=== PATIENT | male | born 1955 | race Two or more races ===

== ENCOUNTER 2019-06-24 13:59 | Inpatient (IN) | payer SELFPAY ==
[~2019-06-24] VITALS: Ht 172.7 cm; Wt 65.8 kg
[2019-06-24 14:00] VITALS: BP 100/80
--- NOTE | 2019-06-24 14:00 | NUR ---
ED Nurse Note: PT AMBULATED TO ED C/O NAUSEA VOMITING WITH BLOOD. PT REPORTS ADBOMEN PAIN. NO ACUTE DISTRESS NOTED. IV LINES ESTABLISHED, PATENT AND INTACT. BLOOD SPECIMEN SENT TO LAB
--- NOTE | 2019-06-24 14:02 | Emergency Room Report ---
History of Present Illness General Source: Patient, EMS Present Illness HPI Patient is a 63-year-old male brought in by EMS after increased hematemesis. Patient reportedly had been vomiting dark bloody material. He reports having a prior history of diabetes as well as hypertension. He denies any alcohol use since June 15. Patient was sent in from a urgent care where he was noted to have some coffee-ground emesis approximately 200 cc. Allergies: Coded Allergies: No Known Allergies (Unverified , 06/24/19) Patient History Reviewed Nursing Documentation: PMH: Agreed; PSxH: Agreed Review of Systems All Other Systems: negative except mentioned in HPI Physical Exam Sp02 EP Interpretation: reviewed, normal General Appearance: normal inspection, alert, GCS 15 Head: atraumatic ENT: normal ENT inspection, hearing grossly normal, normal voice Neck: normal inspection, full range of motion, supple, no bony tend Respiratory: normal inspection, lungs clear, normal breath sounds, no respiratory distress, no retraction, no wheezing Cardiovascular #1: regular rate, rhythm, no edema Gastrointestinal: normal inspection, normal bowel sounds, non tender, soft, no guarding, no hernia Genitourinary: no CVA tenderness Musculoskeletal: normal inspection, back normal, normal range of motion Neurologic: alert, oxyhydrogen welder III-XII nml as tested, oriented x3, responsive, speech normal, normal inspection Psychiatric: normal inspection, judgement/insight normal, mood/affect normal Skin: no rash Medical Decision Making Diagnostic Impression: Primary Impression: Upper GI bleeding Additional Impression: Anemia ER Course Patient presented for hematemesis. Differential diagnosis include was not limited to gastritis, ulcer, coagulopathy, esophageal varices among others. Because of complexity of patient's case laboratory tests and imaging studies were ordered.Patient's laboratory testing did show some evidence of anemia. Patient was advised of laboratory testing. Due to patient's initial bleeding he was started on IV Protonix. Dr. Rosales was contacted for inpatient management due to need for inpatient monitoring and treatment. Labs Test 06/24/19 14:09 06/24/19 15:11 White Blood Count 14.1 K/UL (4.8-10.8) Red Blood Count 2.86 M/UL (4.70-6.10) Hemoglobin 8.9 G/DL (14.2-18.0) Hematocrit 25.1 % (42.0-52.0) Mean Corpuscular Volume 88 FL (80-99) Mean Corpuscular Hemoglobin 31.3 PG (27.0-31.0) Mean Corpuscular Hemoglobin Concent 35.7 G/DL (32.0-36.0) Red Cell Distribution Width 10.8 % (11.6-14.8) Platelet Count 239 K/UL (150-450) Mean Platelet Volume 6.8 FL (6.5-10.1) Neutrophils (%) (Auto) 67.3 % (45.0-75.0) Lymphocytes (%) (Auto) 22.7 % (20.0-45.0) Monocytes (%) (Auto) 7.7 % (1.0-10.0) Eosinophils (%) (Auto) 1.7 % (0.0-3.0) Basophils (%) (Auto) 0.7 % (0.0-2.0) Prothrombin Time 10.0 SEC (9.30-11.50) Prothromb Time International Ratio 0.9 (0.9-1.1) Activated Partial Thromboplast Time 21 SEC (23-33) Sodium Level 142 MMOL/L (136-145) Potassium Level 3.8 MMOL/L (3.5-5.1) Chloride Level 105 MMOL/L (98-107) Carbon Dioxide Level 24 MMOL/L (21-32) Anion Gap 13 mmol/L (5-15) Blood Urea Nitrogen 40 mg/dL (7-18) Creatinine 1.2 MG/DL (0.55-1.30) Estimat Glomerular Filtration Rate > 60 mL/min (>60) Glucose Level 181 MG/DL (74-106) Calcium Level 8.3 MG/DL (8.5-10.1) Total Bilirubin 0.2 MG/DL (0.2-1.0) Aspartate Amino Transf (AST/SGOT) 15 U/L (15-37) Alanine Aminotransferase (ALT/SGPT) 47 U/L (12-78) Alkaline Phosphatase 57 U/L (46-116) Troponin I 0.000 ng/mL (0.000-0.056) Total Protein 6.6 G/DL (6.4-8.2) Albumin 3.4 G/DL (3.4-5.0) Globulin 3.2 g/dL Albumin/Globulin Ratio 1.1 (1.0-2.7) Lipase 194 U/L (73-393) Serum Alcohol < 3 mg/dL Urine Color Yellow Urine Appearance Clear Urine pH 5 (4.5-8.0) Urine Specific [place] 1.015 (1.005-1.035) Urine Protein 1+ (NEGATIVE) Urine Glucose (UA) Negative (NEGATIVE) Urine Ketones Negative (NEGATIVE) Urine Blood Negative (NEGATIVE) Urine Nitrite Negative (NEGATIVE) Urine Bilirubin Negative (NEGATIVE) Urine Urobilinogen Normal MG/DL (0.0-1.0) Urine Leukocyte Esterase 1+ (NEGATIVE) Urine RBC 0-2 /HPF (0 - 0) Urine WBC 2-4 /HPF (0 - 0) Urine Squamous Epithelial Cells Few /LPF (NONE/OCC) Urine Bacteria Few /HPF (NONE) Status: improved Disposition: ADMITTED INPATIENT Condition: Stable Miles Ambriz MD Jun 24, 2019 14:02
[2019-06-24] MEDS ORDERED: Pantoprazole Inj IVP ONE (14:15)
[2019-06-24 15:02] LABS: BASOPHILS % (AUTO) 0.7 % (0.0-2.0); EOSINOPHILS % (AUTO) 1.7 % (0.0-3.0); HEMATOCRIT 25.1 % (42.0-52.0); HEMOGLOBIN 8.9 G/DL (14.2-18.0); LYMPHOCYTES % (AUTO) 22.7 % (20.0-45.0); MEAN CORPUSCULAR VOLUME 88 FL (80-99); MONOCYTES % (AUTO) 7.7 % (1.0-10.0); NEUTROPHILS % (AUTO) 67.3 % (45.0-75.0); PLATELET COUNT 239 K/UL (150-450); RED BLOOD COUNT 2.86 M/UL (4.70-6.10); RED CELL DISTRIBUTION WIDTH 10.8 % (11.6-14.8); WHITE BLOOD COUNT 14.1 K/UL (4.8-10.8)
--- NOTE | 2019-06-24 15:06 | Diagnostic Imaging Report ---
Indication: Cough Technique: One view of the chest Comparison: none Findings: Lungs and pleural spaces are clear. Heart size is normal. Impression: No acute process
[2019-06-24 15:21] LABS: ANION GAP 13 mmol/L (5-15); BLOOD UREA NITROGEN 40 mg/dL (7-18); CALCIUM 8.3 MG/DL (8.5-10.1); CARBON DIOXIDE 24 MMOL/L (21-32); CHLORIDE 105 MMOL/L (98-107); CREATININE 1.2 MG/DL (0.55-1.30); INR 0.9 (0.9-1.1); POTASSIUM 3.8 MMOL/L (3.5-5.1); SODIUM 142 MMOL/L (136-145)
--- NOTE | 2019-06-24 15:30 | NUR ---
ED Nurse Note: PT WAS ABLE TO PROVIDE URINE SAMPLE VIA URINAL.
[2019-06-24 15:33] LABS: ALANINE AMINOTRANSFERASE 47 U/L (12-78); ALBUMIN 3.4 G/DL (3.4-5.0); ALBUMIN/GLOBULIN RATIO 1.1 (1.0-2.7); ALKALINE PHOSPHATASE 57 U/L (46-116); ASPARTATE AMINO TRANSFERASE 15 U/L (15-37); BILIRUBIN,TOTAL 0.2 MG/DL (0.2-1.0)
[2019-06-24 15:57] VITALS: BP 113/66
--- NOTE | 2019-06-24 15:59 | NUR ---
ED Nurse Note: PT VSS, PT IS COMFORTABLE IN BED; ON HIS PHONE. DENIES PAIN AT THIS TIME. AWAITING FURTHER ORDERS WILL CONTINUE TO MONITOR
[2019-06-24 16:18] LABS: APPEARANCE,URINE CLEAR; BILIRUBIN, URINE NEGATIVE (NEGATIVE); GLUCOSE, URINE (UA) NEGATIVE (NEGATIVE); KETONES,URINE NEGATIVE (NEGATIVE); LEUKOCYTE ESTERASE ,URINE 1+ (NEGATIVE); NITRITE,URINE NEGATIVE (NEGATIVE); PH,URINE 5 (4.5-8.0); PROTEIN,URINE 1+ (NEGATIVE); UROBILINOGEN,URINE NORMAL MG/DL (0.0-1.0)
[2019-06-24 16:20] LABS: COLOR,URINE YELLOW
[2019-06-24] MEDS ORDERED: METFORMIN HCL500 M1 ORAL (16:25)
[2019-06-24] MEDS ORDERED: LISINOPRIL5 MG ORAL (16:25)
--- NOTE | 2019-06-24 17:54 | NUR ---
ED Nurse Note: TELEPHONE ENDORSEMENT GIVEN TO ARUNA CASTANEDA FOR CONTINUITY OF CARE.
[2019-06-24 18:00] VITALS: BP 119/67
--- NOTE | 2019-06-24 18:00 | NUR ---
TRANSFER TO FLOOR: Patient transferred to tele as ordered, per ermd. Report given to simone sanchez. Belongings given to pt.
--- NOTE | 2019-06-24 18:00 | NUR ---
NURSE NOTES: Received report from ARUNA Alaniz @ ER. The patient's belongings checked including andersen and denture with the patient and two nurses and signed by two nurses. Medical, surgical, allergy, and social history taken by the nurse. Admitting EKG and medication reconciliation completed @ ER. The patient has R AC 18G intact and patent. The patient's skin is intact. The patient does not have POLST for advanced directive. The patient's vital signs taken on the floor. The patient's vital signs are stable. Notified Dr. Rosales regarding admission for upper GI bleed. Notified Dr. Rosales regarding abnormal lab and stable vital signs. Will wait for admission order. Will continue plan of care.
--- NOTE | 2019-06-24 19:10 | NUR ---
HAND-OFF: Report given to ARUNA Mosher. The patient is resting on the bed without acute distress or shortness of breath. The patient's bed in the lowest position, call light in reach, and fall and aspiration precaution reinforced. IV site intact and patent. No admission order given from Dr. Rosales. Endorsed plan of care.
--- NOTE | 2019-06-24 19:11 | NUR ---
Report from Mariel VALDOVINOS. Will obtain admitting orders from Dr. Rosales. Awaiting callback
[2019-06-24 20:00] VITALS: BP 112/64
[2019-06-24] MEDS: Pantoprazole Inj IVP SCH (22:16)
[2019-06-24] MEDS: NovoLOG Insulin Flexpen SUBQ SCH (22:35)
[2019-06-25] VITALS: BP 98/59
[2019-06-25 04:00] VITALS: BP 103/55
[2019-06-25] MEDS: NovoLOG Insulin Flexpen SUBQ SCH ×4 (06:00→21:00)
[2019-06-25 07:05] LABS: HEMATOCRIT 19.7 % (42.0-52.0); HEMOGLOBIN 7.2 G/DL (14.2-18.0); MEAN CORPUSCULAR VOLUME 88 FL (80-99); PLATELET COUNT 156 K/UL (150-450); RED BLOOD COUNT 2.24 M/UL (4.70-6.10); RED CELL DISTRIBUTION WIDTH 11.6 % (11.6-14.8); WHITE BLOOD COUNT 9.5 K/UL (4.8-10.8)
--- NOTE | 2019-06-25 07:09 | Consultation ---
History of Present Illness General Chief Complaint: Abdominal Pain Present Illness Allergies: Coded Allergies: No Known Allergies (Unverified , 06/24/19) Medication History Scheduled Lisinopril (Lisinopril*), Unknown Dose ORAL DAILY, (Reported) Metformin Hcl* (Metformin Hcl*), 500 MG ORAL DAILY, (Reported) Patient History Healthcare decision maker N Resuscitation status Advanced Directive on File Physical Exam Last 24 Hour Vital Signs Date Time Temp Pulse Resp B/P (MAP) Pulse Ox O2 Delivery O2 Flow Rate FiO2 06/25/19 04:00 79 06/25/19 04:00 98.9 82 16 103/55 (71) 98 06/25/19 00:00 98.0 86 16 98/59 (72) 96 06/24/19 21:00 Room Air 06/24/19 21:00 Room Air 06/24/19 20:00 99.4 76 16 112/64 (80) 96 06/24/19 18:14 98.7 89 22 99/59 100 Room Air 06/24/19 18:00 97.9 89 18 119/67 (84) 98 06/24/19 15:57 98.7 90 17 113/66 100 Room Air 06/24/19 14:00 84 16 Room Air 06/24/19 14:00 98.8 84 16 100/80 (87) 98 Room Air 06/24/19 14:00 98.8 84 16 100/80 98 Room Air Intake and Output 06/24/19 06/25/19 19:00 07:00 Intake Total 1000 ml 360 ml Balance 1000 ml 360 ml Intake Oral 360 ml IV Total 1000 ml # Voids 1 2 Laboratory Tests Test 06/24/19 14:09 06/24/19 15:11 06/25/19 05:50 White Blood Count 14.1 K/UL (4.8-10.8) H Pending Red Blood Count 2.86 M/UL (4.70-6.10) L Pending Hemoglobin 8.9 G/DL (14.2-18.0) L Pending Hematocrit 25.1 % (42.0-52.0) L Pending Mean Corpuscular Volume 88 FL (80-99) Pending Mean Corpuscular Hemoglobin 31.3 PG (27.0-31.0) H Pending Mean Corpuscular Hemoglobin Concent 35.7 G/DL (32.0-36.0) Pending Red Cell Distribution Width 10.8 % (11.6-14.8) L Pending Platelet Count 239 K/UL (150-450) Pending Mean Platelet Volume 6.8 FL (6.5-10.1) Pending Neutrophils (%) (Auto) 67.3 % (45.0-75.0) Pending Lymphocytes (%) (Auto) 22.7 % (20.0-45.0) Pending Monocytes (%) (Auto) 7.7 % (1.0-10.0) Pending Eosinophils (%) (Auto) 1.7 % (0.0-3.0) Pending Basophils (%) (Auto) 0.7 % (0.0-2.0) Pending Prothrombin Time 10.0 SEC (9.30-11.50) Prothromb Time International Ratio 0.9 (0.9-1.1) Activated Partial Thromboplast Time 21 SEC (23-33) L Sodium Level 142 MMOL/L (136-145) Pending Potassium Level 3.8 MMOL/L (3.5-5.1) Pending Chloride Level 105 MMOL/L (98-107) Pending Carbon Dioxide Level 24 MMOL/L (21-32) Pending Anion Gap 13 mmol/L (5-15) Blood Urea Nitrogen 40 mg/dL (7-18) H Pending Creatinine 1.2 MG/DL (0.55-1.30) Pending Estimat Glomerular Filtration Rate > 60 mL/min (>60) Pending Glucose Level 181 MG/DL (74-106) H Pending Hemoglobin A1c 7.0 % (4.3-6.0) H Calcium Level 8.3 MG/DL (8.5-10.1) L Pending Total Bilirubin 0.2 MG/DL (0.2-1.0) Aspartate Amino Transf (AST/SGOT) 15 U/L (15-37) Alanine Aminotransferase (ALT/SGPT) 47 U/L (12-78) Alkaline Phosphatase 57 U/L (46-116) Troponin I 0.000 ng/mL (0.000-0.056) Total Protein 6.6 G/DL (6.4-8.2) Albumin 3.4 G/DL (3.4-5.0) Globulin 3.2 g/dL Albumin/Globulin Ratio 1.1 (1.0-2.7) Lipase 194 U/L (73-393) Thyroid Stimulating Hormone (TSH) 5.143 uiU/mL (0.358-3.740) Serum Alcohol < 3 mg/dL Urine Color Yellow Urine Appearance Clear Urine pH 5 (4.5-8.0) Urine Specific [place] 1.015 (1.005-1.035) Urine Protein 1+ (NEGATIVE) H Urine Glucose (UA) Negative (NEGATIVE) Urine Ketones Negative (NEGATIVE) Urine Blood Negative (NEGATIVE) Urine Nitrite Negative (NEGATIVE) Urine Bilirubin Negative (NEGATIVE) Urine Urobilinogen Normal MG/DL (0.0-1.0) Urine Leukocyte Esterase 1+ (NEGATIVE) H Urine RBC 0-2 /HPF (0 - 0) H Urine WBC 2-4 /HPF (0 - 0) Urine Squamous Epithelial Cells Few /LPF (NONE/OCC) Urine Bacteria Few /HPF (NONE) Triglycerides Level Pending Cholesterol Level Pending LDL Cholesterol Pending HDL Cholesterol Pending Cholesterol/HDL Ratio Pending Height (Feet): 5 Height (Inches): 8.00 Weight (Pounds): 145 Medications Current Medications Medications (Trade) Dose Ordered Sig/Boris Route PRN Reason Start Time Stop Time Status Last Admin Dose Admin Acetaminophen (Tylenol) 650 mg Q6H PRN ORAL Mild Pain/Temp > 100.5 06/24/19 20:30 07/24/19 20:29 Dextrose (Dextrose 50%) 25 ml Q30M PRN IV Hypoglycemia 06/24/19 20:00 07/24/19 19:59 Dextrose (Dextrose 50%) 50 ml Q30M PRN IV Hypoglycemia 06/24/19 20:00 07/24/19 19:59 Insulin Aspart (NovoLOG) BEFORE MEALS AND HS SUBQ 06/24/19 22:00 07/24/19 21:59 06/24/19 22:35 Lisinopril (ZestriL) 5 mg DAILY ORAL 06/25/19 09:00 07/25/19 08:59 Pantoprazole (Protonix) 40 mg EVERY 12 HOURS IVP 06/24/19 21:00 07/24/19 20:59 06/24/19 22:16 Temazepam (Restoril) 15 mg HSPRN PRN ORAL Insomnia 06/24/19 20:30 07/01/19 20:29 Assessment/Plan Assessment/Plan: Hematology Consultation [facility]: Samir Rosales [facility]: Anemia evaluation DOS: 06/25/19 Source: Patient, EMS HPI Patient is a 63-year-old male DM2, HTN, HL brought in by EMS after increased hematemesis. Patient reportedly had been vomiting dark bloody material. He reports having a prior history of diabetes as well as hypertension. He denies any alcohol use since June 15. Patient was sent in from a urgent care where he was noted to have some coffee-ground emesis approximately 200 cc. Has been seen by Gi and further recs to follow. Cbc was ordered this am and any Rn. Currently hematemesis resolved. Coded Allergies: No Known Allergies (Unverified , 06/24/19) Nursing Documentation: PMH: Agreed; PSxH: Agreed Past Med Hx: DM2, HTN, HL Active Scripts Medications Dose Route/Sig Max Daily Dose Days Date Category Lisinopril* (Lisinopril) 5 Mg Tablet Unknown Dose ORAL DAILY 06/24/19 Reported Metformin Hcl* (Metformin HCl) 500 Mg Tablet 500 Mg ORAL DAILY 06/24/19 Reported Fam hx: no hx of cancer or heart disease Surg hx: none Social hx: drinks very little, continues to smoke, no hard drugs, worked at [employer], is single, has 2 kids ROS: negative except mentioned in HPI PE Vitals: reviewed, normal Gen: normal inspection, alert, GCS 15 HEENT: atraumatic Pulm: normal inspection, lungs clear, normal breath sounds, no respiratory distress, no retraction, no wheezing Cardiovascular: regular rate, rhythm, no edema GI: normal inspection, normal bowel sounds, non tender, soft, no guarding, no hernia : no CVA tenderness Skin: no rash Labs: reviewed Assessment and recs: # Anemia due to Upper GI bleeding --> currently appears to have resolved symptomatically --> pls obtain consult with gi for further recs re endoscopy --> anemia panel is pending, has been ordered --> no e/o hemolysis currently noted --> monitor for withdrawal # Leukocytosis is 2/2 reactive process, r/o infection --> cxr reviewed and no infection is noted --> abx as needed # HTn - with elev sbp upon admission --> sbp goal <140 --> as per cards eval --> on lisinopril # HL - lipitor as needed --> per cards prn # DM2, on metformin --> obtain hgb a1c # Dvt ppx scds Appreciate consultation and dw Rn Sreedhar Gifford MD Jun 25, 2019 07:09
--- NOTE | 2019-06-25 07:24 | NUR ---
NURSE NOTES: Received report from Hannah VALDOVINOS. Pt alert and orientedx4 and able to able needs known. Pt sitting in bed. Bed in lowest position and locked. Call light within easy reach. Side railsx2 up for safety. No c/o pain. Denied SOB. IV site in RAC 18G SL patent and asymptomatic. No episode of emesis or hematemesis noted. Will continue to plan of care.
--- NOTE | 2019-06-25 07:24 | NUR ---
Report given to Anival RN. Endorsed plan of care.
[2019-06-25 07:35] LABS: ANION GAP 6 mmol/L (5-15); BLOOD UREA NITROGEN 27 mg/dL (7-18); CALCIUM 7.9 MG/DL (8.5-10.1); CARBON DIOXIDE 30 MMOL/L (21-32); CHLORIDE 105 MMOL/L (98-107); CHOLESTEROL 110 MG/DL (< 200); CREATININE 1.1 MG/DL (0.55-1.30); HDL CHOLESTEROL 27 MG/DL (40-60); SODIUM 140 MMOL/L (136-145); TRIGLYCERIDES 256 MG/DL (30-150)
[2019-06-25 08:54] VITALS: BP 103/56
[2019-06-25] MEDS ORDERED: Lisinopril 2.5mg tab ORAL SCH (09:00)
[2019-06-25] MEDS: Pantoprazole Inj IVP SCH ×2 (09:22→21:00)
--- NOTE | 2019-06-25 11:51 | History & Physical ---
History of Present Illness General Date patient seen: Jun 25, 2019 Reason for Hospitalization: Abdominal Pain Present Illness HPI History of Present Illness General Source: Patient, EMS Present Illness HPI Patient is a 63-year-old male brought in by EMS after increased hematemesis. Patient reportedly had been vomiting dark bloody material. He reports having a prior history of diabetes as well as hypertension. He denies any alcohol use since June 15. Patient was sent in from a urgent care where he was noted to have some coffee-ground emesis approximately 200 cc. Allergies: Coded Allergies: No Known Allergies (Unverified , 06/24/19) Patient History Reviewed Nursing Documentation: PMH: Agreed; PSxH: Agreed ER ROS - General Review of Systems All Other Systems: negative except mentioned in HPI Allergies: Coded Allergies: No Known Allergies (Unverified , 06/24/19) Medication History Scheduled Lisinopril (Lisinopril*), Unknown Dose ORAL DAILY, (Reported) Metformin Hcl* (Metformin Hcl*), 500 MG ORAL DAILY, (Reported) Patient History Healthcare decision maker N Resuscitation status Advanced Directive on File Review of Systems Review of Symptoms General ROS: no weight loss or fever Psychological ROS: no depression or mood changes, no memory loss Ophthalmic ROS: no visual changes or eye irritation ENT ROS: no nasal congestion, hearing loss, dizziness Allergy and Immunology ROS: no allergic symptoms or urticaria Hematological and Lymphatic ROS: no swollen glands, unusual bleeding or bruising Endocrine ROS: no polyuria, polydipsia, weight changes, temperature intolerance Respiratory ROS: no cough, shortness of breath, or wheezing Cardiovascular ROS: no chest pain or dyspnea on exertion Gastrointestinal ROS: denies abdominal pain, bright red blood in stool. Musculoskeletal ROS: no myalgias or arthralgias Neurological ROS: no TIA or stroke symptoms Dermatological ROS: no new or changing skin lesions, rashes or pruritis Physical Exam Physical Exam General appearance: alert, cooperative, no distress, appears stated age Head: Normocephalic, without obvious abnormality, atraumatic Eyes: conjunctivae/corneas clear. PERRL, EOM's intact. Fundi benign Throat: Lips, mucosa, and tongue normal. Teeth and gums normal Neck: supple, symmetrical, trachea midline, no adenopathy, thyroid: not enlarged, symmetric, no tenderness/mass/nodules, no carotid bruit and no JVD Lungs: clear to auscultation bilaterally Heart: regular rate and rhythm, S1, S2 normal, no murmur, click, rub or gallop Abdomen: soft, non-tender. Bowel sounds normal. No masses, no organomegaly Extremities: extremities normal, atraumatic, no cyanosis or edema Pulses: 2+ and symmetric Skin: Skin color, texture, turgor normal. No rashes or lesions Neurologic: Grossly normal Last 24 Hour Vital Signs Date Time Temp Pulse Resp B/P (MAP) Pulse Ox O2 Delivery O2 Flow Rate FiO2 06/25/19 09:00 103/56 06/25/19 09:00 Room Air 06/25/19 08:54 98.9 82 16 103/56 (72) 98 06/25/19 08:00 82 06/25/19 04:00 79 06/25/19 04:00 98.9 82 16 103/55 (71) 98 06/25/19 00:00 98.0 86 16 98/59 (72) 96 06/24/19 21:00 Room Air 06/24/19 21:00 Room Air 06/24/19 20:00 99.4 76 16 112/64 (80) 96 06/24/19 18:14 98.7 89 22 99/59 100 Room Air 06/24/19 18:00 97.9 89 18 119/67 (84) 98 06/24/19 15:57 98.7 90 17 113/66 100 Room Air 06/24/19 14:00 84 16 Room Air 06/24/19 14:00 98.8 84 16 100/80 (87) 98 Room Air 06/24/19 14:00 98.8 84 16 100/80 98 Room Air Intake and Output 06/24/19 06/25/19 19:00 07:00 Intake Total 1000 ml 360 ml Balance 1000 ml 360 ml Intake Oral 360 ml IV Total 1000 ml # Voids 1 2 Laboratory Tests Test 06/24/19 14:09 06/24/19 15:11 06/25/19 05:50 White Blood Count 14.1 K/UL (4.8-10.8) H 9.5 K/UL (4.8-10.8) Red Blood Count 2.86 M/UL (4.70-6.10) L 2.24 M/UL (4.70-6.10) L Hemoglobin 8.9 G/DL (14.2-18.0) L 7.2 G/DL (14.2-18.0) L Hematocrit 25.1 % (42.0-52.0) L 19.7 % (42.0-52.0) L Mean Corpuscular Volume 88 FL (80-99) 88 FL (80-99) Mean Corpuscular Hemoglobin 31.3 PG (27.0-31.0) H 32.2 PG (27.0-31.0) H Mean Corpuscular Hemoglobin Concent 35.7 G/DL (32.0-36.0) 36.6 G/DL (32.0-36.0) H Red Cell Distribution Width 10.8 % (11.6-14.8) L 11.6 % (11.6-14.8) Platelet Count 239 K/UL (150-450) 156 K/UL (150-450) Mean Platelet Volume 6.8 FL (6.5-10.1) 6.4 FL (6.5-10.1) L Neutrophils (%) (Auto) 67.3 % (45.0-75.0) % (45.0-75.0) Lymphocytes (%) (Auto) 22.7 % (20.0-45.0) % (20.0-45.0) Monocytes (%) (Auto) 7.7 % (1.0-10.0) % (1.0-10.0) Eosinophils (%) (Auto) 1.7 % (0.0-3.0) % (0.0-3.0) Basophils (%) (Auto) 0.7 % (0.0-2.0) % (0.0-2.0) Prothrombin Time 10.0 SEC (9.30-11.50) Prothromb Time International Ratio 0.9 (0.9-1.1) Activated Partial Thromboplast Time 21 SEC (23-33) L Sodium Level 142 MMOL/L (136-145) 140 MMOL/L (136-145) Potassium Level 3.8 MMOL/L (3.5-5.1) 4.0 MMOL/L (3.5-5.1) Chloride Level 105 MMOL/L (98-107) 105 MMOL/L (98-107) Carbon Dioxide Level 24 MMOL/L (21-32) 30 MMOL/L (21-32) Anion Gap 13 mmol/L (5-15) 6 mmol/L (5-15) Blood Urea Nitrogen 40 mg/dL (7-18) H 27 mg/dL (7-18) H Creatinine 1.2 MG/DL (0.55-1.30) 1.1 MG/DL (0.55-1.30) Estimat Glomerular Filtration Rate > 60 mL/min (>60) > 60 mL/min (>60) Glucose Level 181 MG/DL (74-106) H 112 MG/DL (74-106) H Hemoglobin A1c 7.0 % (4.3-6.0) H Calcium Level 8.3 MG/DL (8.5-10.1) L 7.9 MG/DL (8.5-10.1) L Total Bilirubin 0.2 MG/DL (0.2-1.0) Aspartate Amino Transf (AST/SGOT) 15 U/L (15-37) Alanine Aminotransferase (ALT/SGPT) 47 U/L (12-78) Alkaline Phosphatase 57 U/L (46-116) Troponin I 0.000 ng/mL (0.000-0.056) Total Protein 6.6 G/DL (6.4-8.2) Albumin 3.4 G/DL (3.4-5.0) Globulin 3.2 g/dL Albumin/Globulin Ratio 1.1 (1.0-2.7) Lipase 194 U/L (73-393) Thyroid Stimulating Hormone (TSH) 5.143 uiU/mL (0.358-3.740) Serum Alcohol < 3 mg/dL Urine Color Yellow Urine Appearance Clear Urine pH 5 (4.5-8.0) Urine Specific [place] 1.015 (1.005-1.035) Urine Protein 1+ (NEGATIVE) H Urine Glucose (UA) Negative (NEGATIVE) Urine Ketones Negative (NEGATIVE) Urine Blood Negative (NEGATIVE) Urine Nitrite Negative (NEGATIVE) Urine Bilirubin Negative (NEGATIVE) Urine Urobilinogen Normal MG/DL (0.0-1.0) Urine Leukocyte Esterase 1+ (NEGATIVE) H Urine RBC 0-2 /HPF (0 - 0) H Urine WBC 2-4 /HPF (0 - 0) Urine Squamous Epithelial Cells Few /LPF (NONE/OCC) Urine Bacteria Few /HPF (NONE) Differential Total Cells Counted 100 Neutrophils % (Manual) 61 % (45-75) Lymphocytes % (Manual) 32 % (20-45) Monocytes % (Manual) 5 % (1-10) Eosinophils % (Manual) 2 % (0-3) Basophils % (Manual) 0 % (0-2) Band Neutrophils 0 % (0-8) Platelet Estimate Adequate Platelet Morphology Normal Anisocytosis 1+ Triglycerides Level 256 MG/DL (30-150) H Cholesterol Level 110 MG/DL (< 200) LDL Cholesterol 35 mg/dL (<100) HDL Cholesterol 27 MG/DL (40-60) L Cholesterol/HDL Ratio 4.1 (3.3-4.4) Height (Feet): 5 Height (Inches): 8.00 Weight (Pounds): 145 Medications Current Medications Medications (Trade) Dose Ordered Sig/Boris Route PRN Reason Start Time Stop Time Status Last Admin Dose Admin Acetaminophen (Tylenol) 650 mg Q6H PRN ORAL Mild Pain/Temp > 100.5 06/24/19 20:30 07/24/19 20:29 Dextrose (Dextrose 50%) 25 ml Q30M PRN IV Hypoglycemia 06/24/19 20:00 07/24/19 19:59 Dextrose (Dextrose 50%) 50 ml Q30M PRN IV Hypoglycemia 06/24/19 20:00 07/24/19 19:59 Insulin Aspart (NovoLOG) BEFORE MEALS AND HS SUBQ 06/24/19 22:00 07/24/19 21:59 06/24/19 22:35 Lisinopril (ZestriL) 5 mg DAILY ORAL 06/25/19 09:00 07/25/19 08:59 Pantoprazole (Protonix) 40 mg EVERY 12 HOURS IVP 06/24/19 21:00 07/24/19 20:59 06/25/19 09:22 Temazepam (Restoril) 15 mg HSPRN PRN ORAL Insomnia 06/24/19 20:30 07/01/19 20:29 Assessment/Plan Status: stable Diagnosis [place] I: A/P 1. Acute Anemia 2. DM 3. Hypothyroidism 4. HTN Plan: GI consulted [facility] Hospital declaration INPATIENT level of care is warranted for this patient because patient is a 89 year old with who presents with suspicion of . I have a high level of concern because . Patient is at high risk for . Plan of care/treatment include . Patient care is expected to be greater than 2 midnights. OBSERVATION level of care is warranted for this patient. Patient is a 89 year old with who presents with . Patient will be admitted for 1 midnight, but if additional night(s) is/are necessary, patient will be converted to inpatient status for the entire hospitalization Disposition: Once the patient is stable to leave the hospital, I anticipate the patient will likely be discharged to the following environment: Estimated discharge date: I spent 70 minutes on this patient's case, and minutes was dedicated to counseling and/or care coordination. MIPS (Merit-based Incentive Payment System) Applicable CPT: 88769, 17046 CHECK ALL THAT ARE MET: Measure #5 (CHF): All ages. Prescribe KANCHAN/ARB upon discharge for patients with left ventricular systolic dysfunction. If not, the reason is clearly documented in the medical chart. Measure #8 (CHF): All ages. Prescribe a beta denae upon discharge for patients with left ventricular systolic dysfunction. If not, the reason is clearly documented in the medical chart. Measure #47 Advance care plan or surrogate decision maker documented in the medical record. Measure #130 The provider has documented, updated, or reviewed the patients current medication list and has documented it in the patients note. Measure #374 (All): Send report to referring provider. Measure #407(Sepsis due to MSSA bacteremia): Age 18+ Patient treated with a beta-lactam antibiotic (Nafcillin, Oxacillin or Cefazolin) as definitive therapy. MEDICAL COMPLEXITY High complexity medical decision making (need 2/3 categories) Problem - need 4 points Acute/new problem with new plan for workup (4 points, 1 max) Acute/new problem without additional workup (3 points, 1 max) Unstable chronic problem actively being managed (2 point each, 2 max) Stable chronic problem actively being managed (1 point each, 2 max) Self-limited/transient process (constipation, muscle ache, etc) (1 point each , 2 max) Data - need 4 points Reviewed labs/imaging studies (1 points, 2 max) Independent review of imaging (EKG, xrays, etc) (2 points, 2 max) Discussed case with consult/other MD/RN (2 points, 2 max) High Risk - qualify if have one of the following: Severe exacerbation of acute problem, acute mental status change, IV narcotics , monitoring drug levels (vancomycin, INR, tacrolimus etc) Samir Rosalse MD Jun 25, 2019 11:51
[2019-06-25 11:57] VITALS: BP 106/78
[2019-06-25] MEDS: metFORMIN 500mg tab ORAL SCH ×2 (12:00→16:57)
--- NOTE | 2019-06-25 12:28 | General Progress Note ---
Assessment/Plan Problem List: (1) Upper GI bleeding ICD Codes: K92.2 - Gastrointestinal hemorrhage, unspecified SNOMED: 93281513 (2) Anemia ICD Codes: D64.9 - Anemia, unspecified SNOMED: 918316436 Status: stable Assessment/Plan: EGD was cancelled for today given patient has food plan transfuse ppi IV plan EGD on Friday Subjective Allergies: Coded Allergies: No Known Allergies (Unverified , 06/24/19) Objective Last 24 Hour Vital Signs Date Time Temp Pulse Resp B/P (MAP) Pulse Ox O2 Delivery O2 Flow Rate FiO2 06/25/19 11:57 98.4 76 16 106/78 (87) 98 06/25/19 09:00 103/56 06/25/19 09:00 Room Air 06/25/19 08:54 98.9 82 16 103/56 (72) 98 06/25/19 08:00 82 06/25/19 04:00 79 06/25/19 04:00 98.9 82 16 103/55 (71) 98 06/25/19 00:00 98.0 86 16 98/59 (72) 96 06/24/19 21:00 Room Air 06/24/19 21:00 Room Air 06/24/19 20:00 99.4 76 16 112/64 (80) 96 06/24/19 18:14 98.7 89 22 99/59 100 Room Air 06/24/19 18:00 97.9 89 18 119/67 (84) 98 06/24/19 15:57 98.7 90 17 113/66 100 Room Air 06/24/19 14:00 84 16 Room Air 06/24/19 14:00 98.8 84 16 100/80 (87) 98 Room Air 06/24/19 14:00 98.8 84 16 100/80 98 Room Air Intake and Output 06/24/19 06/25/19 19:00 07:00 Intake Total 1000 ml 360 ml Balance 1000 ml 360 ml Intake Oral 360 ml IV Total 1000 ml # Voids 1 2 Laboratory Tests 06/24/19 14:09: White Blood Count 14.1H, Red Blood Count 2.86L, Hemoglobin 8.9L, Hematocrit 25.1L, Mean Corpuscular Volume 88, Mean Corpuscular Hemoglobin 31.3H, Mean Corpuscular Hemoglobin Concent 35.7, Red Cell Distribution Width 10.8L, Platelet Count 239, Mean Platelet Volume 6.8, Neutrophils (%) (Auto) 67.3, Lymphocytes (%) (Auto) 22.7, Monocytes (%) (Auto) 7.7, Eosinophils (%) (Auto) 1.7, Basophils (%) (Auto) 0.7, Prothrombin Time 10.0, Prothromb Time International Ratio 0.9, Activated Partial Thromboplast Time 21L, Sodium Level 142, Potassium Level 3.8, Chloride Level 105, Carbon Dioxide Level 24, Anion Gap 13, Blood Urea Nitrogen 40H, Creatinine 1.2, Estimat Glomerular Filtration Rate > 60, Glucose Level 181H, Hemoglobin A1c 7.0H, Calcium Level 8.3L, Total Bilirubin 0.2, Aspartate Amino Transf (AST/SGOT) 15, Alanine Aminotransferase ( ALT/SGPT) 47, Alkaline Phosphatase 57, Troponin I 0.000, Total Protein 6.6, Albumin 3.4, Globulin 3.2, Albumin/Globulin Ratio 1.1, Lipase 194, Thyroid Stimulating Hormone (TSH) 5.143H, Serum Alcohol < 3 06/24/19 15:11: Urine Color Yellow, Urine Appearance Clear, Urine pH 5, Urine Specific [place] 1.015, Urine Protein 1+H, Urine Glucose (UA) Negative, Urine Ketones Negative, Urine Blood Negative, Urine Nitrite Negative, Urine Bilirubin Negative, Urine Urobilinogen Normal, Urine Leukocyte Esterase 1+H, Urine RBC 0-2H, Urine WBC 2-4 , Urine Squamous Epithelial Cells Few, Urine Bacteria Few 06/25/19 05:50: White Blood Count 9.5, Red Blood Count 2.24L, Hemoglobin 7.2L, Hematocrit 19.7L , Mean Corpuscular Volume 88, Mean Corpuscular Hemoglobin 32.2H, Mean Corpuscular Hemoglobin Concent 36.6H, Red Cell Distribution Width 11.6, Platelet Count 156, Mean Platelet Volume 6.4L, Neutrophils (%) (Auto) , Lymphocytes (%) (Auto) , Monocytes (%) (Auto) , Eosinophils (%) (Auto) , Basophils (%) (Auto) , Sodium Level 140, Potassium Level 4.0, Chloride Level 105 , Carbon Dioxide Level 30, Anion Gap 6, Blood Urea Nitrogen 27H, Creatinine 1.1 , Estimat Glomerular Filtration Rate > 60, Glucose Level 112H, Calcium Level 7.9L, Differential Total Cells Counted 100, Neutrophils % (Manual) 61, Lymphocytes % (Manual) 32, Monocytes % (Manual) 5, Eosinophils % (Manual) 2, Basophils % (Manual) 0, Band Neutrophils 0, Platelet Estimate Adequate, Platelet Morphology Normal, Anisocytosis 1+, Triglycerides Level 256H, Cholesterol Level 110, LDL Cholesterol 35, HDL Cholesterol 27L, Cholesterol/HDL Ratio 4.1 Height (Feet): 5 Height (Inches): 8.00 Weight (Pounds): 145 General Appearance: alert EENT: normal ENT inspection Neck: supple Cardiovascular: normal rate Respiratory/Chest: lungs clear Abdomen: normal bowel sounds, non tender, soft Extremities: non-tender Dillon Mckeon MD Jun 25, 2019 12:28
--- NOTE | 2019-06-25 13:04 | NUR ---
CASE MANAGEMENT:REVIEW 63 YR OLD MALE BIBA FROM HOME CC; VOMITING BLOOD. ABDOMINAL PAIN SI: UGIB. ANEMIA 98.0 84 16 100/80 98% ON RA WBC+14.1 H/H-8.9/25.1 IS: 1L NS BOLUS IV PROTONIX CHEST XRAY : TO TELEMETRY DCP: RETURN HOME
--- NOTE | 2019-06-25 14:00 | NUR ---
NURSE NOTES: Dr. Rosales paged to clarify the frequency of Metformin. Per MD, follow the orders with TID
[2019-06-25 16:00] VITALS: BP 119/77
--- NOTE | 2019-06-25 19:12 | NUR ---
HAND-OFF: Report given to Huy Young. Plan of care endorsed.
--- NOTE | 2019-06-25 19:19 | NUR ---
Report from Anival RN. She endorsed to me the plan of care.
[2019-06-25 20:00] VITALS: BP 136/82
[2019-06-26] VITALS: BP 140/80
[2019-06-26 04:00] VITALS: BP 136/74
[2019-06-26] MEDS: metFORMIN 500mg tab ORAL SCH (05:53)
[2019-06-26] MEDS: NovoLOG Insulin Flexpen SUBQ SCH (05:59)
[2019-06-26] MEDS ORDERED: Levothyroxine 25mcg tab ORAL SCH (06:30)
--- NOTE | 2019-06-26 07:15 | NUR ---
NURSE NOTES: Dr. Ferrera on the floor aware patient made aware wanted wanted to go home today. per MD if patient wanted to leave he has to go AMA.
--- NOTE | 2019-06-26 07:36 | NUR ---
Report given to Maria De Jesus VALDOVINOS. Endorsed plan of care.
--- NOTE | 2019-06-26 07:45 | NUR ---
NURSE NOTES: Received patient from Huy Ritchie. Patient is awake lying comfortably in bed. No complain of pain or discomfort. Patient wishing to go home today will notify MD. fall precautions in place. Will follow.
[2019-06-26 08:00] VITALS: BP 130/84
[2019-06-26 08:31] LABS: BASOPHILS % (AUTO) 0.9 % (0.0-2.0); EOSINOPHILS % (AUTO) 3.8 % (0.0-3.0); HEMATOCRIT 24.1 % (42.0-52.0); HEMOGLOBIN 8.6 G/DL (14.2-18.0); LYMPHOCYTES % (AUTO) 32.2 % (20.0-45.0); MEAN CORPUSCULAR VOLUME 89 FL (80-99); MONOCYTES % (AUTO) 8.6 % (1.0-10.0); NEUTROPHILS % (AUTO) 54.5 % (45.0-75.0); PLATELET COUNT 151 K/UL (150-450); RED CELL DISTRIBUTION WIDTH 11.6 % (11.6-14.8); WHITE BLOOD COUNT 7.2 K/UL (4.8-10.8)
[2019-06-26 09:22] LABS: ANION GAP 8 mmol/L (5-15); BLOOD UREA NITROGEN 15 mg/dL (7-18); CALCIUM 7.9 MG/DL (8.5-10.1); CARBON DIOXIDE 27 MMOL/L (21-32); CHLORIDE 105 MMOL/L (98-107); CREATININE 1.1 MG/DL (0.55-1.30); POTASSIUM 3.9 MMOL/L (3.5-5.1); SODIUM 140 MMOL/L (136-145)
--- NOTE | 2019-06-26 09:27 | NUR ---
AMA: Patient insisting of leaving hospital against medical advice. Explained Risks and consequences of AMA. patient still insist. Next of kin Brother made aware of AMA. Patient ambulated off the floor with steady gait. VSS. Patient signed AMA. All belongings taken by patient. heart monitor, IS band and IV removed from patient. Dr. Gifford also aware of AMA
--- NOTE | 2019-06-29 08:38 | Discharge Summary ---
Discharge Summary Discharge Summary _ DATE OF ADMISSION: 06/24/2019 DATE OF DISCHARGE: 06/26/2019 Patient left AGAINST MEDICAL ADVICE REASON FOR ADMISSION: 63 years old male with past medical history of diabetes mellitus and hypertension, brought to emergency department with hematemesis. Patient apparently was vomiting dark bloody material. Patient denied alcohol use since June 15. Laboratory work-up revealed leukocytosis WBC 14.1 hemoglobin 8.9, hematocrit 25.1. No fevers. INR 0.9. Stable electrolytes. BUN 40, creatinine 1.2. Glucose 181. AST 15 ALT 47. Troponin negative. Urinalysis revealed +1 protein , +1 leukocyte esterase, no pyuria, no bacteria. Chest x-ray revealed no evidence of infection. Patient subsequently admitted for upper GI bleeding and anemia CONSULTANTS: GI specialist Dr. Mckeon supply chain technician/oncologist Dr. Gifford [place] [facility] [employer] [facility] COURSE: Patient admitted to telemetry floor. Patient was kept n.p.o. and started on the IV fluids and IV Protonix every 12 hours. GI specialist consulted. Hemoglobin and hematocrit were closely monitored with goal to keep hemoglobin above 7. On the day of discharge of leaving hemoglobin 8.6, hematocrit 24.1. GI specialist followed. Patient was scheduled for EGD on 06/25, but accidentally was given food by the nursling staff. Subsequently EGD was postponed till 06/28. Symptomatic treatment provided. Antiemetic were on board as needed. The patient was able to tolerate diet . No further hematemesis. Initial leukocytosis resolved. Per supply chain technician , leukocytosis most likely was reactive , given that the chest x-ray was negative and urinalysis revealed no evidence of infection . Fever resolved and leukocytosis resolved. Acute anemia was likely due to upper GI bleeding. Blood pressure was managed with KANCHAN inhibitor , and remained stable. Blood sugar was managed with metformin. DVT prophylaxis provided. Noted elevated TSH. Patient started on low-dose of levothyroxine. Repeat thyroid function test in 1 month. In the morning of 06/26 patient decided to leave AGAINST MEDICAL ADVICE. The risks and consequences of signing AGAINST MEDICAL ADVICE were discussed with patient in detail. Patient verbalized understanding, nevertheless signed AMA form and left. FINAL DIAGNOSES: Upper GI bleeding Acute anemia secondary to upper GI bleeding Diabetes mellitus Hypertension Hypothyroidism Leukocytosis, likely reactive -resolved I have been assigned to dictate discharge summary for this account. I was not involved in the patient's management. Josette Spangler NP Jun 29, 2019 08:38
== END 2019-06-26 09:19 | disposition left against medical advice (07) | DRG 378 ==
LOC: EDBD 13:59 → EMR 14:51 → 2E 15:15 → EDBEDREQ 15:55
PROC: 30233N1 Transfusion of Nonautologous Red Blood Cells into Peripheral Vein, Percutaneous Approach (ICD-10-PCS; principal; 2019-06-25)
DX: K92.2 Gastrointestinal hemorrhage, unspecified (principal); D62 Acute posthemorrhagic anemia; D64.9 Anemia, unspecified; E11.9 Type 2 diabetes mellitus without complications; E03.9 Hypothyroidism, unspecified; I10 Essential (primary) hypertension; E78.5 Hyperlipidemia, unspecified
CPT/HCPCS: 36415; 71045; 80048; 80053; 80061; 81003; 82962; 83036; 83690; 84443; 84484; 85007; 85025; 85610; 85730; 86850; 86900; 86901; 86920; 93005; 96361; 96374; 99285; G0480; J1815; J7030